=== PATIENT | male | born 1955 | race Caucasian/White ===

== ENCOUNTER 2020-08-10 00:11 | Inpatient (IN) ==
[2020-08-10] MEDS ORDERED: SODIUM CHLORIDE 0.9% 1000ML 1,000 ML IV SCH (00:45)
[2020-08-10 01:03] LABS: Basophils # (auto) 0.04 K/uL (0-0.2); Basophils % (auto) 0.5 %; Eosinophils % (auto) 10.5 %; Hematocrit (blood only) 39.5 % (42-52); Hemoglobin 14.1 g/dL (14.0-18.0); Immature Granulocytes # (auto) 0.02 K/uL (0.00-0.02); Immature Granulocytes % (auto) 0.3 %; Lymphocytes # (auto) 0.74 K/uL (1.2-3.4); Lymphocytes % (auto) 9.7 %; Mean Corpuscular Hemoglobin 30.9 pg (25-34); Mean Corpuscular Hgb Conc 35.7 g/dL (32-36); Mean Corpuscular Volume 86.4 fL (80-100); Monocytes # (auto) 0.42 K/uL (0.11-0.59); Monocytes % (auto) 5.5 %; Neutrophils # (auto) 5.61 K/uL (1.4-6.5); Neutrophils % (auto) 73.5 %; Platelet Count 318 K/uL (130-400); RDW Coefficient of Variation 12.3 % (11.5-14.5); RDW Standard Deviation 39.3 fL (36.4-46.3); Red Blood Count 4.57 M/uL (4.7-6.1); White Blood Count 7.63 K/uL (4.8-10.8)
[2020-08-10 01:12] LABS: iSTAT Creatinine 3.6 mg/dl (0.6-1.3); iSTAT Hemoglobin 13.6 g/dl (14.0-18.0); iSTAT Ionized Calcium 1.32 mmol/l (1.12-1.32); iSTAT Potassium 4.3 mmol/L (3.3-5.0)
[2020-08-10 01:13] LABS: Partial Thromboplastin Ratio 0.9; Partial Thromboplastin Time 26.4 Seconds (21.0-31.0); Prothrombin Time 10.6 Seconds (9.0-12.0)
[2020-08-10 01:21] LABS: Alanine Aminotransferase 19 U/L (12-78); Albumin Level 3.5 gm/dl (3.4-5.0); Aspartate Aminotransferase 16 U/L (15-37); BUN Creatinine Ratio 7.1 (10-20); Blood Urea Nitrogen 26 mg/dl (7-18); Calcium 9.9 mg/dl (8.5-10.1); Carbon Dioxide 23 mmol/L (21-32); Chloride 95 mmol/L (98-107); Creatinine Clr Calc Pharmacy 25.1 ml/min; Est GFR (African American) 19.1; Est GFR (Non-African American) 16.5; Glucose 111 mg/dl (70-99); Potassium 4.2 mmol/L (3.5-5.1); Sodium 128 mmol/L (136-145)
[2020-08-10] MEDS ORDERED: FAMOTIDINE 20MG/5ML IV PUSH IV STA (01:25)
[2020-08-10 01:26] LABS: Alkaline Phosphatase 88 U/L (45-117); Bilirubin,Total 0.9 mg/dl (0.2-1); Globulin 3.4 gm/dl (2.5-4.0); NT Pro B Type Natriuretic Pept 35 pg/ml (0-900); Total Protein 6.9 gm/dl (6.4-8.2); Troponin I < 0.015 ng/ml (0-0.045)
[2020-08-10 02:56] LABS: Appearance Urine Clear (Clear); Bacteria Urine Automated Negative (Negative); Bilirubin Urine Negative (Negative); Blood Urine 2+ (Negative); Cast Urine Automated 0 /lpf (0-5); Color Urine Orange; Epithelial Cell Urine Auto 0-5 /lpf (0-5); Glucose Urine UA Negative (Negative); Ketones Urine Trace (Negative); Leukocyte Esterase Urine Negative (Negative); Nitrite Urine Positive (Negative); Protein Urine 1+ (Negative); RBC Urine Automated 0-4 /hpf (0-4); Specific Gravity Urine 1.013 (1.000-1.030); Urobilinogen Urine Negative (Negative)
--- NOTE | 2020-08-10 03:53 | History & Physical Report ---
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 secondary to lymphatic leakage post radical prostatectomy and lymph nodes sampling Will get diagnostic paracentesis Could be secondary to blood clot, portal thrombosis Will get mesenteric doppler u/s to assess flow through mesenteric and portal veins Possibly secondary to reactivated granulomatous disease, Donald's could explain lung granulomas and impaired renal function, CHurg Sav, tuberculosis Will get acid fast culture of ascitic fluid, will check ESR and CRP for evidence of active vasuclitic disease Other common causes for ascites: Cirrhosis, no evidence of cirrhosis on CT, no evidence of liver dysfunction INR normal, Bili transaminases normal. Cancer, certainly possible though patient reportedly had fairly mild disease with clear margins and all lymph nodes negative PSA <3 at time of diagnosis Heart Failure, negative BNP no evidence of failure on history or physical SHANA Patient admits he has not been eating or drinking much of anything for last week, Creatinine 3.62 BUN of 26 Will rehydrate given 1 L NSS in ED now 125 mls/hour LR and recheck BMP to see if this is pre renal Urine sodium and urine creatinine ordered to check FENA, urinating spontaneously without any difficulty or weakened stream does not appear to be obstructive Hyponatremia 128 unknown chronicity Will rehydrate and recheck in AM UTI Patient with positive nitrites blood and protein, Non septic asymptomatic will give dose of ceftriaxone now DVT PPx: lovenox F/E/N: LR 125 mls/hour NPO for now Dispo: Admit Med/Surg for further investigations as above Full Code (2) Elevated PSA: (3) Ascites: (4) Status post prostatectomy: (5) Hyponatremia: (6) SHANA (acute kidney injury): History of Present Illness Chief Complaint: Abdominal Distension causing shortness of breath Primary Care Provider: Carmelo Alvarez MD Andrew Anguiano is a 65 year old man with a Past medical history significant for recently diagnosed prostate cancer with radical prostatectomy performed at [facility] two weeks ago and hyperlipidemia who presents today with shortness of breath. He has noticed marked abdominal swelling that has been increasing since a few days after his procedure. He feels that it has stopped him being able to take a deep breath which is making him feel short of breath. He has also had some non bloody non melanotic diarrhea over the last three days and has had some incontinence since his miramontes was removed following the procedure about a week ago. Just in the last week he has gained ten pounds despite a markedly decreased appetite and decreased liquid intake. Patient also went to his primary care doctor about a week ago for palpable lump on his neck. U/S was obtained which appeared to be a reactive lymph node rather than suspicious for metastatic prostate cancer. Surgical margins for prostate cancer were clear and they took approximately 20 lymph nodes as well per patient, no records as surgery was done at [place]. Other than that he has been well and has not noticed any other symptoms, denies fever, chills, sweats, chest pain, orthopnea, leg swelling, hand swelling, abdominal pain, nausea vomiting, hematuria, dysuria, skin rashes, weakenss, numbness dizziness or syncope, palpitations or any other concerning symptoms. On presentation to ED patient's vitals are WNL, Labwork significant for hypnatremia at 127 and an SHANA with creatinine of 3.62 with no baseline BUN of 26, urinalysis with 2+blood, 1+ protein, and positive nitrites. CT abdomen Pelvis obtained showing RIght upper and middle lobe calcified granulomas, hepatic granuloma and splenic granulomas as well as a moderate/large amount of ascites. 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 Full Code Allergies Allergy/AdvReac Type Severity Reaction Status Date / Time levofloxacin [From Levaquin] Allergy hives Verified 08/10/20 00:32 oxaprozin [From Daypro] Allergy Hives Verified 08/10/20 00:32 Home Medications Home Medications Medication Instructions Recorded Confirmed Type ipratropium bromide 2 spray INTRANASAL BID 08/10/20 08/10/20 History simvastatin 20 mg PO DAILY 08/10/20 08/10/20 History Past Med/Surg History Surgical History (Updated 08/10/20 @ 04:23 by Sudeep Bourne MD) No history of previous surgery Family History (Updated 05/22/20 @ 09:25 by Nelly Cordoba) Other No pertinent family history Social History Smoking Status: Never smoker Hx Alcohol Use: Yes Alcohol type: wine Alcohol Intake Frequency Comment: socially Hx Substance Use: No Preferred Language: Spanish Communication Ability: Effective 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: No Beliefs That Will Affect Care: None marital status: Current Living Situation: Family Other Information That Helps Us Care for You: No Feels Safe at Home: Yes Safety Concerns: Feels Safe At This Time Assistive Devices: Glasses Review of Systems Review of Systems: All systems reviewed & are unremarkable except as noted in HPI & below Physical Exam Constitutional: well developed and well nourished; no acute distress and not ill appearing Eyes: PERRL, conjunctivae normal, anicteric sclerae ENMT: external ear and nose normal, oropharynx normal Neck: Firm nontender lymph nodes about 1 cm on lower anterior neck Respiratory: normal respiratory effort, lungs clear to auscultation Cardiovascular: Rate/Rhythm: regular rate and regular rhythm Heart Sounds: normal S1 and normal S2 Vessels: normal peripheral pulses and dorsalis pedis pulses present; no JVD Extremities: no calf tenderness, no pedal edema and no edema Gastrointestinal (Abdomen): Inspection/Auscultation: + abdomen distended Percussion/Palpation: + ascites (Shiftin dullness); abdomen nontender, no guarding and no hepatosplenomegaly Skin: no rashes, warm and dry Neurologic: PERRL, EOMI, accommodation nl, no face palsy, no dysarthria Results & Data Results & Data ([facility]) Vital Signs (Past 12 Hours) Vital Signs Temp Pulse Pulse Resp BP BP Pulse Ox 08/10/20 02:25 77 19 139/76 94 08/10/20 01:25 81 18 138/82 97 08/10/20 00:23 36.6 C 96 H 18 146/85 H 97 Code Status & VTE Plan VTE Prophylaxis Plan VTE Prophylaxis will be ordered: Yes Supervising Physician Co-Signing Physician Notes Attending addendum: I have physically seen this patient, have supervised the medical residents activities, and agree with the H&P unless as otherwise noted. Assessment and Plan: Acute renal failure/hyponatremia/presumptive UTI- Creatinine 3.60 upon admission, with most recent around 1. Sodium 128 upon admission. Check serum and urine osmolalities. NSS at 125 mL's per hour. Recheck laboratories in a.m. Ceftriaxone 1 g IV daily Follow urine culture and sensitivities Consult nephrology Prostate cancer status post prostatectomy- Consult urology Ascites/nonspecific- Unclear etiology at this time. Order mesenteric Dopplers and abdominal ultrasound for further investigation. Ultrasound-guided diagnostic paracentesis. Consult gastroenterology Remaining orders and notations as noted Resident Activity Tracking Resident Involvement: Resident Care Provided Care Provided: [facility]
[2020-08-10] MEDS ORDERED: ONDANSETRON INJ 2 MG/ML 2 ML VIAL IV PRN (04:59)
[2020-08-10] MEDS ORDERED: LACTATED RINGER'S 1,000 ML IV SCH (04:59)
[2020-08-10] MEDS ORDERED: POLYETHYLENE (MIRALAX) 17 GM PACK PO PRN (04:59)
[2020-08-10] MEDS: SODIUM CHLORIDE 0.9% 1000ML 1,000 ML IV SCH ×3 (05:27→20:41)
--- NOTE | 2020-08-10 05:31 | Emergency Department Note ---
History of Present Illness General Chief complaint: Respiratory Problems Stated complaint: HARD TO BREATHE Time Seen by Provider: 08/10/20 00:27 Source: patient and RN notes reviewed Mode of arrival: ambulatory Limitations: no limitations History of Present Illness Provider complaint: SOB, 10 lb weight gain, recent prostate surgery at [facility] This pt is a 65 yo male who presents to the ED with c/o increasing SOB, abd distension and pain in the upper abd/lower chest bilaterally making breathing difficult. He states his position of comfort is standing. Pt has h/o prostate CA and recent (~ 2 weeks) radical prostatectomy at [facility]. He has gained 10 lbs since surgery. Pt states he was on ASA for a while after surgery but was advised to watch for DVT/PE. He denies fever, cough and CP. He admits to SOB particularly when lying flat. There has been no v/d. He denies LE swelling. Home Medications Home Medications Medication Instructions Recorded Confirmed Type ipratropium bromide 2 spray INTRANASAL BID 08/10/20 08/10/20 History simvastatin 20 mg PO DAILY 08/10/20 08/10/20 History Allergies Allergy/AdvReac Type Severity Reaction Status Date / Time levofloxacin [From Levaquin] Allergy hives Verified 08/10/20 00:32 oxaprozin [From Daypro] Allergy Hives Verified 08/10/20 00:32 Past Med/Surg History Medical History Hyperlipidemia Nephrolithiasis Prostate cancer Surgical History History of prostatectomy No history of previous surgery Family History Other No pertinent family history Social History Smoking Status: Never smoker Hx Alcohol Use: Yes Alcohol type: wine Alcohol Intake Frequency Comment: socially Hx Substance Use: No Preferred Language: Pashto Communication Ability: Effective Tar And Ammonia Pump Operator Required: No Beliefs That Will Affect Care: None marital status: Current Living Situation: Family Other Information That Helps Us Care for You: No Feels Safe at Home: Yes Safety Concerns: Feels Safe At This Time Assistive Devices: None Review of Systems See HPI for pertinent positives & negatives. and A total of 10 systems reviewed and were otherwise negative Physical Exam Vital Signs Vital Signs - 24 hr 08/10/20 01:25 08/10/20 02:25 Pulse Rate [Right Finger] 81 77 Respiratory Rate 18 19 Blood Pressure [Right Arm] 138/82 139/76 Blood Pressure Mean [Right Arm] 100 97 Pulse Oximetry 97 94 Vital signs reviewed. General: Generally well appearing 65 yo male in some discomfort but no sign ificant distress. Sitting upright in bed. HEENT: No scleral icterus, PERRLA, neck supple. Atraumatic. Cardiovascular: Regular rate and rhythm, no extra sounds. Pulmonary: Clear to auscultation bilaterally, normal work of breathing. Abdomen: Distended, firm but nontender, positive bowel sounds. Musculoskeletal: Atraumatic, no peripheral edema. Neurologic: Patient awake alert and oriented x 3, full strength in all 4 extremities. Cranial nerves 2 through 12 grossly intact. Skin: Warm, dry, abdominal incisions with glue, no signs of infection. no drainage. Course Administered Medications Acetaminophen (Acetaminophen 325 Mg Tab) 650 mg PO Q4H PRN PRN Reason: pain/fever Stop: 09/09/20 04:58 Last Admin: 08/11/20 09:48 Dose: 650 mg Documented by: [id number] Admin: 08/11/20 03:57 Dose: 650 mg Documented by: [id number] Enoxaparin Sodium (Enoxaparin Inj 30 Mg/0.3 Ml Syr) 30 mg SQ Q24H VERONICA Stop: 09/09/20 08:59 Last Admin: 08/11/20 09:49 Dose: 30 mg Documented by: [id number] Admin: 08/10/20 12:15 Dose: 30 mg Documented by: [id number] Ceftriaxone Sodium 2,000 mg/ (Dextrose) 70 mls @ 100 mls/hr IV Q24H VERONICA; Protocol Stop: 08/17/20 05:59 Last Infusion: 08/11/20 08:18 Dose: 0 mls/hr Documented by: [id number] Admin: 08/11/20 06:39 Dose: 100 mls/hr Documented by: [id number] Infusion: 08/10/20 07:00 Dose: 0 mls/hr Documented by: [id number] Admin: 08/10/20 06:03 Dose: 100 mls/hr Documented by: [id number] Sodium Chloride (Nss 1000ml) 1,000 mls @ 125 mls/hr IV .Q8H VERONICA Stop: 09/09/20 05:14 Last Admin: 08/11/20 04:28 Dose: 125 mls/hr Documented by: [id number] Infusion: 08/11/20 04:28 Dose: 125 mls/hr Documented by: [id number] Admin: 08/10/20 20:41 Dose: 125 mls/hr Documented by: [id number] Infusion: 08/10/20 20:41 Dose: 125 mls/hr Documented by: [id number] Infusion: 08/10/20 14:59 Dose: 125 mls/hr Documented by: [id number] Admin: 08/10/20 13:20 Dose: 125 mls/hr Documented by: [id number] Infusion: 08/10/20 13:20 Dose: 125 mls/hr Documented by: [id number] Infusion: 08/10/20 06:59 Dose: 125 mls/hr Documented by: [id number] Infusion: 08/10/20 06:15 Dose: 0 mls/hr Documented by: [id number] Admin: 08/10/20 05:27 Dose: 125 mls/hr Documented by: [id number] Melatonin (Melatonin 3 Mg Tab) 6 mg PO HS VERONICA Stop: 09/09/20 20:59 Last Admin: 08/10/20 20:41 Dose: 6 mg Documented by: [id number] Simvastatin (Simvastatin 20 Mg Tab) 20 mg PO HS VERONICA Stop: 09/09/20 20:59 Last Admin: 08/10/20 19:33 Dose: 20 mg Documented by: [id number] Discontinued Medications Famotidine (Famotidine 20mg/5ml Iv Push) 20 mg IV ONE STA Stop: 08/10/20 01:26 Last Admin: 08/10/20 01:29 Dose: 20 mg Documented by: [id number] Sodium Chloride (Nss 1000ml) 1,000 mls @ 999 mls/hr IV .Q1H1M VERONICA Stop: 08/10/20 01:45 Last Infusion: 08/10/20 01:55 Dose: 0 mls/hr Documented by: [id number] Admin: 08/10/20 00:58 Dose: 999 mls/hr Documented by: [id number] Lactated Ringer's (Lr) 1,000 mls @ 125 mls/hr IV .Q8H VERONICA Stop: 09/09/20 04:58 Last Admin: 08/10/20 05:47 Dose: Not Given Documented by: [id number] Medical Decision Making Differential Diagnosis Differential diagnosis: Etiologies such as infections, reactive airway disease, COPD, pneumonia, pleural effusion, pulmonary edema, ARDS, pneumothorax, CHF, cardiac ischemia, cardiac tamponade, dysrhythmia, anemia, pulmonary embolism, musculoskeletal, gastrointestinal process, as well as others were entertained. Medical Records Attestation: I reviewed the patient's medical records. Home Medications Current Medication List: was personally reviewed by me Laboratory Data Attestation: I reviewed the patient's lab results. Result diagrams: 08/11/20 04:45 08/11/20 04:45 Lab Results 08/10/20 08/10/20 08/10/20 Range/Units 00:03 00:03 00:03 WBC 7.63 (4.8-10.8) K/uL RBC 4.57 L (4.7-6.1) M/uL Hgb 14.1 (14.0-18.0) g/dL POC Hgb (14.0-18.0) g/dl Hct 39.5 L (42-52) % POC Hct (42-52) % MCV 86.4 (80-100) fL MCH 30.9 (25-34) pg MCHC 35.7 (32-36) g/dL RDW Std Deviation 39.3 (36.4-46.3) fL RDW Coeff of Tucker 12.3 (11.5-14.5) % Plt Count 318 (130-400) K/uL MPV 9.0 (7.4-10.4) fL Immature Gran % (Auto) 0.3 % Neut % (Auto) 73.5 % Lymph % (Auto) 9.7 % Stanley % (Auto) 5.5 % Eos % (Auto) 10.5 % Baso % (Auto) 0.5 % Neut # (Auto) 5.61 (1.4-6.5) K/uL Lymph # (Auto) 0.74 L (1.2-3.4) K/uL Stanley # (Auto) 0.42 (0.11-0.59) K/uL Eos # (Auto) 0.80 H (0-0.5) K/uL Baso # (Auto) 0.04 (0-0.2) K/uL Immature Gran # (Auto) 0.02 (0.00-0.02) K/uL PT 10.6 (9.0-12.0) Seconds INR 1.0 (0.9-1.1) APTT 26.4 (21.0-31.0) Seconds PTT Ratio 0.9 POC Sodium (135-144) mmol/L Sodium 128 L (136-145) mmol/L POC Potassium (3.3-5.0) mmol/L Potassium 4.2 (3.5-5.1) mmol/L POC Chloride (101-112) mmol/L Chloride 95 L (98-107) mmol/L Carbon Dioxide 23 (21-32) mmol/L POC Total CO2 (24-31) mmol/L Anion Gap 10.0 (3-11) POC Anion Gap (16-25) mmol/L POC BUN (7-18) mg/dl BUN 26 H (7-18) mg/dl Creatinine 3.62 H (0.6-1.4) mg/dl POC Creatinine (0.6-1.3) mg/dl Est Cr Clr Drug Dosing 25.1 ml/min Est GFR ( Amer) 19.1 Est GFR (Non-Af Amer) 16.5 BUN/Creatinine Ratio 7.1 L (10-20) Glucose 111 H (70-99) mg/dl POC Glucose (other) (70-99) mg/dl Calcium 9.9 (8.5-10.1) mg/dl POC Ioniz Calcium Surya (1.12-1.32) mmol/l Magnesium 2.0 (1.8-2.4) mg/dl Total Bilirubin 0.9 (0.2-1) mg/dl AST 16 (15-37) U/L ALT 19 (12-78) U/L Alkaline Phosphatase 88 (45-117) U/L Troponin I < 0.015 (0-0.045) ng/ml NT-Pro-B Natriuret Pep 35 (0-900) pg/ml Total Protein 6.9 (6.4-8.2) gm/dl Albumin 3.5 (3.4-5.0) gm/dl Globulin 3.4 (2.5-4.0) gm/dl Albumin/Globulin Ratio 1.0 (0.9-2) Urine Color Urine Appearance (Clear) Urine pH (4.5-7.5) Ur Specific Franklin (1.000-1.030) Urine Protein (Negative) Urine Glucose (UA) (Negative) Urine Ketones (Negative) Urine Blood (Negative) Urine Nitrite (Negative) Urine Bilirubin (Negative) Urine Urobilinogen (Negative) Ur Leukocyte Esterase (Negative) Urine WBC (Auto) (0-5) /hpf Urine RBC (Auto) (0-4) /hpf U Hyaline Cast (Auto) (0-5) /lpf U Epithel Cells (Auto) (0-5) /lpf Urine Bacteria (Auto) (Negative) 08/10/20 08/10/20 Range/Units 00:58 02:42 WBC (4.8-10.8) K/uL RBC (4.7-6.1) M/uL Hgb (14.0-18.0) g/dL POC Hgb 13.6 L (14.0-18.0) g/dl Hct (42-52) % POC Hct 40 L (42-52) % MCV (80-100) fL MCH (25-34) pg MCHC (32-36) g/dL RDW Std Deviation (36.4-46.3) fL RDW Coeff of Tucker (11.5-14.5) % Plt Count (130-400) K/uL MPV (7.4-10.4) fL Immature Gran % (Auto) % Neut % (Auto) % Lymph % (Auto) % Stanley % (Auto) % Eos % (Auto) % Baso % (Auto) % Neut # (Auto) (1.4-6.5) K/uL Lymph # (Auto) (1.2-3.4) K/uL Stanley # (Auto) (0.11-0.59) K/uL Eos # (Auto) (0-0.5) K/uL Baso # (Auto) (0-0.2) K/uL Immature Gran # (Auto) (0.00-0.02) K/uL PT (9.0-12.0) Seconds INR (0.9-1.1) APTT (21.0-31.0) Seconds PTT Ratio POC Sodium 127 L (135-144) mmol/L Sodium (136-145) mmol/L POC Potassium 4.3 (3.3-5.0) mmol/L Potassium (3.5-5.1) mmol/L POC Chloride 93 L (101-112) mmol/L Chloride (98-107) mmol/L Carbon Dioxide (21-32) mmol/L POC Total CO2 20 L (24-31) mmol/L Anion Gap (3-11) POC Anion Gap 19.0 (16-25) mmol/L POC BUN 27 H (7-18) mg/dl BUN (7-18) mg/dl Creatinine (0.6-1.4) mg/dl POC Creatinine 3.6 H (0.6-1.3) mg/dl Est Cr Clr Drug Dosing ml/min Est GFR ( Amer) Est GFR (Non-Af Amer) BUN/Creatinine Ratio (10-20) Glucose (70-99) mg/dl POC Glucose (other) 113 H (70-99) mg/dl Calcium (8.5-10.1) mg/dl POC Ioniz Calcium Surya 1.32 (1.12-1.32) mmol/l Magnesium (1.8-2.4) mg/dl Total Bilirubin (0.2-1) mg/dl AST (15-37) U/L ALT (12-78) U/L Alkaline Phosphatase (45-117) U/L Troponin I (0-0.045) ng/ml NT-Pro-B Natriuret Pep (0-900) pg/ml Total Protein (6.4-8.2) gm/dl Albumin (3.4-5.0) gm/dl Globulin (2.5-4.0) gm/dl Albumin/Globulin Ratio (0.9-2) Urine Color [place] Urine Appearance Clear (Clear) Urine pH 5.0 (4.5-7.5) Ur Specific Franklin 1.013 (1.000-1.030) Urine Protein 1+ H (Negative) Urine Glucose (UA) Negative (Negative) Urine Ketones Trace H (Negative) Urine Blood 2+ H (Negative) Urine Nitrite Positive A (Negative) Urine Bilirubin Negative (Negative) Urine Urobilinogen Negative (Negative) Ur Leukocyte Esterase Negative (Negative) Urine WBC (Auto) 1-5 (0-5) /hpf Urine RBC (Auto) 0-4 (0-4) /hpf U Hyaline Cast (Auto) 0 (0-5) /lpf U Epithel Cells (Auto) 0-5 (0-5) /lpf Urine Bacteria (Auto) Negative (Negative) Imaging Data Attestation: I personally reviewed and interpreted this imaging study as follows: My Impression: CXR to my interpretation reveals atelectasis and pulm congestion, no evidence of gurpreet failure or focal lung consolidation. Radiologist's Impression: CT CHEST Without Contrast: Heart is normal in size. There is moderate coronaryarterycalcification. Thoracic aorta appears normal. There are calcified lymph nodes in the right paratracheal space and right hilum. Lungs are clear. There are calcified granulomas in the right upper lobe and right middle lobe. There is subsegmental atelectasis in the right lung base. There is no pneumothorax or pleural effusion. Impression:Old granulomatous disease. CT ABDOMEN & PELVIS Without Contrast: There is a hepatic granuloma. There are splenic granulomas. Pancreas appears normal. Gallbladder appears normal. There is a small gastric sliding hiatal hernia. Small bowel and colon appear normal the appendix is not specificallyvisualized. Adrenals kidneys ureters and bladder appear normal. Prostate is not visualized consistent with provided history. There is a moderate-large amount of peritoneal fluid. There is no free peritoneal air. Impression:Nonspecific ascites Radiologist: Minh Holland MD Study ready at 01:57 and initial results transmitted at 02:14 ECG Data Attestation: I personally reviewed and interpreted this ECG as follows: Indication: + SOB/dyspnea Rate (beats per minute): 80 Rhythm: + normal sinus ECG Intervals/blocks: + Normal QT-c (433) ECG [place]: + Normal ECG ST segments: + Normal ST segments ECG Findings: + Q waves (Anterior) Blood Pressure Blood Pressure Findings: Normal blood pressure Blood Pressure Disposition: did not require urgent referral MDM Narrative This pt was evaluated and appeared to be in no distress. IV access was obtained and lab work was drawn. An order for cardiac monitoring was placed and pt was noted to be in a NSR at 80 bpm. CXR to my interpretation reveals minimal congestion, no failure or evidence of PNA. Lab work is concerning for ARF, creat of 3.62 with baseline in May of 1.1. K+ is WNL at 4.4. Pt was hydrated with NSS hoping there is a prerenal component. CT imaging of chest and abd/pelvis was performed without contrast d/t ARF. This is significant for nonspecific ascites of uncertain etiology. No obstructive uropathy noted. UA reveals + nitrates but no WBC, LE or bacteria. Pt was informed of the findings. He will require much more significant w/u. Pt was d/w hospitalist service who will evaluate for further management. Impression & Plan SHANA (acute kidney injury), Ascites, Status post prostatectomy Discharge Plan Visit Data Chief Complaint: Respiratory Problems Stated Complaint: HARD TO BREATHE ED Provider: Kelin Belcher Discharge Problem: SHANA (acute kidney injury), Ascites, Status post prostatectomy Patient Disposition: Admitted As Inpatient Discharge Instructions Interventions: ED Discharge Assessment Last Done: 08/10/20 04:39 Discharge Problem: Ascites Qualifiers: Ascites type: other type Qualified Code(s): R18.8 - Other ascites
[2020-08-10] MEDS: cefTRIAXone SODIUM 2,000 MG in DEXTROSE 5% 50 ML IV SCH (06:03)
[2020-08-10 07:27] LABS: Creatinine Urine Random 87.4 mg/dl
--- NOTE | 2020-08-10 08:18 | CT Scan Report ---
CT SCAN OF THE ABDOMEN AND PELVIS WITHOUT CONTRAST CLINICAL HISTORY: Abdominal pain and swelling status post radical prostatectomy. Shortness of breath. COMPARISON STUDY: No previous studies for comparison. TECHNIQUE: CT scan of the abdomen and pelvis was performed from the lung bases to the proximal femurs . Images are reviewed in the axial, sagittal, and coronal planes. IV contrast was not administered fo r this examination. A dose lowering technique was utilized adhering to the principles of ALARA. CT DOSE: FINDINGS: Lower chest: There are calcified hilar lymph nodes. There are right middle lobe and basilar atelectat ic changes. Liver: The unenhanced liver is normal in size, contour, and attenuation. There is no intrahepatic ricardo iary ductal dilatation. Gallbladder: Unremarkable. Spleen: There are multiple splenic granulomas. The spleen is mildly enlarged measuring 13.1 cm Pancreas: Unremarkable. Adrenal glands: Unremarkable. Kidneys: No renal, ureteral, or bladder calculi are visualized. Bowel: There are no transition zones to indicate bowel obstruction. By history the appendix is absent . There is colonic diverticulosis. Peritoneum: There is no free intraperitoneal air. There is moderate ascites. Vasculature: The abdominal aorta is normal in course and caliber. Adenopathy: None. Pelvic viscera: Post prostatectomy changes are visualized. Skeletal structures: No destructive osseous lesions are seen. IMPRESSION: 1. No evidence of bowel obstruction. No evidence of free air 2. Diverticulosis 3. Mild splenomegaly 4. Postsurgical changes of a prior prostatectomy 5. Moderate ascites ACT 112: Negative or not required by law. Electronically signed by: Mello Renner M.D. 08/10/2020 8:17 AM
--- NOTE | 2020-08-10 08:42 | XRay Report ---
XR chest 1V portable HISTORY: Dyspnea COMPARISON: None. FINDINGS: Bibasilar linear densities consistent with subsegmental atelectasis. The heart is top lino l in size. No pleural effusions. No pneumothorax. No evidence for pulmonary edema. Calcified mediasti nal and right hilar lymph nodes. IMPRESSION: Bibasilar linear densities consistent with subsegmental atelectasis. ACT 112: Negative or not required by law. Electronically signed by: Bryan Farmer M.D. 08/10/2020 8:41 AM
--- NOTE | 2020-08-10 08:43 | CT Scan Report ---
CT chest wo con CLINICAL HISTORY: SOB, weight gain COMPARISON STUDY: Chest x-ray dated 08/10/2020 CT DOSE: 1462.24 mGy.cm TECHNIQUE: CT of the thorax was performed from the thoracic inlet to the lung bases. Images are revi ewed in the axial, sagittal, and coronal planes. IV contrast was not administered for this examinatio n. A dose lowering technique was utilized adhering to the principles of ALARA. FINDINGS: Thyroid: Imaged portions of the thyroid gland are normal in appearance. Thoracic aorta: The thoracic aorta is normal in course and caliber, noting standard 3 vessel arch jake luis. Heart: The heart is normal in size. There are coronary artery calcifications. Lungs and pleural spaces: There are no pleural effusions. There are subsegmental atelectatic changes at both lung bases. There are no areas of parenchymal consolidation to indicate a pneumonia. There is a right upper lobe calcified granuloma. There is a 7 mm irregularly marginated left upper lobe pulmo nary nodule as visualized image #[id number]. There is a 7 mm irregularly marginated right middle lobe pu lmonary nodule as visualized image [id number]. Mediastinum: There are calcified mediastinal lymph nodes, likely postinflammatory Tatiana: There are hilar calcifications, likely postinflammatory. Axilla: There is no evidence of pathologic axillary lymphadenopathy Upper abdomen: There is moderate ascites Skeletal structures: There are no lytic or blastic osseous lesions. IMPRESSION: 1. Bilateral atelectatic changes 2. Bilateral solid 7 mm irregularly marginated pulmonary nodules 3. Bilateral atelectatic changes. No evidence of focal pneumonia 4. A 3-6 months follow-up CT scan is recommended per Fleischner criteria. 5. Ascites Please refer to below summary of Fleischner criteria recommendations for follow-up of incidental CT n odules (Jamie Pelaez, Guidelines for management of small pulmonary nodules detected on CT scans: A sta tement from the Fleischner Society, Radiology 237: [phone].) SOLID NODULES Solitary nodule size: <6 mm * low risk patients: no follow-up needed * high risk patients: optional CT at 12 months Solitary nodule size: 6-8 mm * low risk patients: follow-up at 6-12 months, then consider further follow-up at 18-24 months * high risk patients: initial follow-up CT at 6-12 months and then at 18-24 months if no change Solitary nodule size: >8 mm * either low or high risk patients - consider follow-up CT at 3 months, and/or CT-PET, and/or biopsy Multiple nodules size: <6 mm * low risk patients: no routine follow-up * high risk patients: optional CT at 12 months Multiple nodules size: 6-8 mm * low risk patients: follow-up at 3-6 months, then consider further follow-up at 18-24 months * high risk patients: follow-up at 3-6 months, then at 18-24 months if no change Multiple nodules size: >8 mm * low risk patients: follow-up at 3-6 months, then consider further follow-up at 18-24 months * high risk patients: follow-up at 3-6 months, then at 18-24 months if no change Note: newly detected indeterminate nodule in persons 35 years of age or older. * low risk patients: minimal or absent history of smoking and/or other known risk factors * high risk patients: history of smoking or of other known risk factors (e.g. first degree relative with lung cancer, or exposure to asbestos, radon, uranium) * if a nodule up to 8 mm is partly solid or is ground glass further follow-up is required after 24 m onths to exclude possible slow growing adenocarcinoma (PATY) SUBSOLID NODULES Solitary pure ground-glass nodule * nodule size <6 mm - no CT follow-up required * nodule size >=6 mm - follow-up CT at 6-12 months, then every 2 years until 5 years Solitary part-solid nodule * nodule size <6 mm - no CT follow-up required * nodule size >=6 mm - follow-up CT at 3-6 months. If unchanged, and solid component remains <6 mm, then annual follow-up for 5 years Multiple subsolid nodules * nodule size <6 mm - follow-up CT at 3-6 months, consider further follow-up at 2 and 4 years if sta ble * nodule size >=6 mm - follow-up CT at 3-6 months, subsequent management based on the most suspiciou s nodule(s) ACT 112: Positive. There are findings on this exam that require communication between the performing entity and the patient following Patient Test Result Information Act ([place] Act 112) guidelines. Electronically signed by: Mello Renner M.D. 08/10/2020 8:41 AM
[2020-08-10] MEDS ORDERED: SIMVASTATIN 20 MG TAB PO SCH (09:00)
--- NOTE | 2020-08-10 10:47 | Electrocardiogram Report ---
Test Reason : Blood Pressure : / mmHG Vent. Rate : 080 BPM Atrial Rate : 080 BPM P-R Int : 200 ms QRS Dur : 100 ms QT Int : 376 ms P-R-T Axes : 026 027 046 degrees QTc Int : 433 ms Normal sinus rhythm Low voltage QRS Borderline ECG No previous ECGs available Confirmed by Chapin Aiken ([id number]) on 08/10/2020 10:47:30 AM Referred By: REFERRED SELF Confirmed By:Rome Aiken
--- NOTE | 2020-08-10 10:56 | Hospitalist Progress Note ---
Date of Service August 10, 2020 Assessment & Plan (1) Ascites: 65 y/o M with recently diagnosed prostate cancer s/p prostatectomy who presents with ascites, hyponatremia, and SHANA. Ascites, trausudative vs chylous vs malignant - H/H ok. hb 14.1. hct39.5L. coags wnl. crp 0.98H. cdiff tox gene neg. 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 CT abd and CT chest showed splenic granulomas and pulmonary granuloma. Consider TB vs MAC. - consider disseminated histoplasmosis. past hx granulomas on imaging and histoplasmosis per patient reported hx. consider histoplasmosis serology testing, blood cultures, peritoneal fluid testing - switched order from diagnostic to diagnostic+therapeutic paracentesis. will include AFB test. - canceled order for mesenteric US because lower suspicion for arterial pathology - portal vein US: patent portal veins - ordered noon BMP recheck. update: hypoNa unchanged prostate cancer s/p prostatectomy 2 wks ago - can consider rechecking PSA, but given how recent the prostatectomy was, will defer pulmonary nodules on CT chest chest ct: bilat solid 7 mm irreg margin pulm nodules. granuloma noted - can consider nearer future outpatient f/u on CT such as 1-3 months vs EBUS - deferring biopsy today while awaiting paracentesis workup for ascites hypoNa 128, asymptomatic - most likely from poor PO intake prior to admission and hemodilution from IV fluids. - will trend, no specific repletion at this time. on NSS. SHANA, most likely ATN - bun/cr 26H/3.62H - likely ATN given recent prostate cancer dx and surgery. lack of casts on UA but sometimes does not show. - FeNa 1.2%, most suggestive of intrinsic renal disease, ATN. less likely glomeurlonephritis given unimpressive amount of urine blood on UA and no hematuria. less likely obstructive because of CT findings. palpitations - ecg nsr low voltage at midnight. - will not order another ecg at this time insomnia - added scheduled melatonin 6 qhs UA suggestive of bacteruria, asymptomatic - urine nitrite pos - could order culture to have sensitivities on hand (but would not treat) in case patient develop urinary sxs especially in the context of his prostate issues and complex presentation - culture deferred at this time fengi: 1.1 in. 150 out. nss 125. ceftriaxone iv 100/hr. NPO->DM2 diet starting at dinner time. full code. med/surg Present on Admission?: Yes Admission and Anticipated Discharge Date Admission Date: August 10, 2020 Supervising Physician Co-Signing Physician Notes I personally examined the patient and verified all amato points of history and exam, discussed case, and agree with decision making with Dr Cameron. feeling about the same. did have some diarrhea - but also was constipated earlier in the week. wonders about lymphatic fluid. urinating reasonably - although notes less since he had miramontes out vitals noted nad heent nc at mmm breathing unlabored no accessory muscles good effort abd soft mod distention w fluid wave surgical scars from multiple incisions healing well, c/d/i new onset ascites -portal HTN/liver mechanism appears ruled out -?oncotic/osmotic pressure increase pulling fluid possible -?chylous ascites seems less likely but still possible -does not appearing SBP/active infection -consider further ddx, diagnostic para will be quite helpful ARF -FeNa suggests intrinsic renal. CT rules out obstructive -?prerenal insult between surgery, poor intake, third spacing from ascites, and fluid loss from diarrhea leading to ATN -follow - improving -continue IV fluids otherwise as above Subjective + some SOB worse when sitting or any position that compresses his abdomen. Least SOB in standing position. + occasional palpitations since last night, described as heart pounding. + 3 days of looser stools / diarrhea, mild amounts, 4-5 episodes/day. + abd bloating, + flatus and burping. Denie hx of liver problems. Review of Systems Review of Systems: Constitutional: Denies fever, chills Cardiovascular: Denies Chest pain, chest pressure, extremity swelling Respiratory: As per HPI Gastrointestinal: Denies abdominal pain, nausea, vomiting, constipation Genitourinary: Denies urinary symptoms including dysuria Musculoskeletal: Denies muscle aches/pain, joint aches/pain Neurological: Denies headache, numbness, tingling, focal weakness Physical Exam Physical Exam: General: Grossly A&O. NAD. Cooperative. HEENT: Atraumatic, normocephalic. Pulm: CTAB. -wheezes, -rales, -rhonchi. Cardiac: RRR, -mrg. No LE edema. Negative for JVD, ~8cm at 30 degrees. Abdominal: Nontender, soft. Moderate ascites. Results & Data Results & Data ([facility]) Vital Signs (Past 12 Hours) Vital Signs Temp Pulse Pulse Resp BP BP Pulse Ox 08/10/20 08:21 36.5 C 71 18 131/70 98 08/10/20 05:00 36.6 C 83 20 131/83 98 08/10/20 04:39 78 17 129/75 95 08/10/20 04:26 84 18 95 08/10/20 02:25 77 19 139/76 94 08/10/20 01:25 81 18 138/82 97 08/10/20 00:23 36.6 C 96 H 18 146/85 H 97
--- NOTE | 2020-08-10 11:35 | Ultrasound Report ---
US duplex portal hepatic veins CLINICAL HISTORY: CONCERN FOR PORTAL VEIN THROMBOSIS. Ascites. COMPARISON STUDY: Abdomen and pelvis CT 08/10/2020. FINDINGS: The portal and hepatic veins are patent and demonstrate normal direction of flow. There is a small to moderate amount of ascites. IMPRESSION: 1. Patent portal veins. 2. Small to moderate amount of ascites. ACT 112: Negative or not required by law. Electronically signed by: Bryan Farmer M.D. 08/10/2020 11:34 AM
[2020-08-10] MEDS: ENOXAPARIN INJ 30 MG/0.3 ML SYR SQ SCH (12:15)
[2020-08-10] MEDS ORDERED: Nursing to Pharmacy Communication SCH (12:30)
[2020-08-10 13:10] LABS: BUN Creatinine Ratio 7.3 (10-20); Calcium 9.3 mg/dl (8.5-10.1); Creatinine Clr Calc Pharmacy 27.1 ml/min; Est GFR (African American) 20.9; Potassium 4.4 mmol/L (3.5-5.1)
[2020-08-10] MEDS: SIMVASTATIN 20 MG TAB PO SCH (19:33)
[2020-08-10] MEDS: MELATONIN 3 MG TAB PO SCH (20:41)
--- NOTE | 2020-08-11 02:58 | Billing Data ---
Date of Service August 11, 2020 Coding Level of Care Code 59880 Initial Inpt Care Lvl 3
[2020-08-11] MEDS: ACETAMINOPHEN 325 MG TAB PO PRN ×3 (03:57→21:22)
[2020-08-11] MEDS: SODIUM CHLORIDE 0.9% 1000ML 1,000 ML IV SCH ×3 (04:28→19:54)
[2020-08-11 05:01] LABS: Basophils # (auto) 0.08 K/uL (0-0.2); Basophils % (auto) 1.3 %; Eosinophils # (auto) 1.08 K/uL (0-0.5); Eosinophils % (auto) 18.1 %; Hematocrit (blood only) 38.2 % (42-52); Hemoglobin 13.7 g/dL (14.0-18.0); Immature Granulocytes # (auto) 0.01 K/uL (0.00-0.02); Immature Granulocytes % (auto) 0.2 %; Lymphocytes # (auto) 1.07 K/uL (1.2-3.4); Mean Corpuscular Hemoglobin 31.5 pg (25-34); Mean Corpuscular Hgb Conc 35.9 g/dL (32-36); Mean Corpuscular Volume 87.8 fL (80-100); Mean Platelet Volume 9.2 fL (7.4-10.4); Monocytes # (auto) 0.34 K/uL (0.11-0.59); Monocytes % (auto) 5.7 %; Neutrophils # (auto) 3.38 K/uL (1.4-6.5); Neutrophils % (auto) 56.7 %; Platelet Count 321 K/uL (130-400); RDW Coefficient of Variation 12.5 % (11.5-14.5); RDW Standard Deviation 40.3 fL (36.4-46.3); Red Blood Count 4.35 M/uL (4.7-6.1); White Blood Count 5.96 K/uL (4.8-10.8)
[2020-08-11 05:20] LABS: Albumin Level 3.6 gm/dl (3.4-5.0); Calcium 9.5 mg/dl (8.5-10.1); Creatinine Clr Calc Pharmacy 24.6 ml/min; Est GFR (African American) 18.6; Est GFR (Non-African American) 16.1; Potassium 4.5 mmol/L (3.5-5.1)
[2020-08-11 05:23] LABS: Albumin Globulin Ratio 1.1 (0.9-2); Bilirubin,Total 0.7 mg/dl (0.2-1); Globulin 3.4 gm/dl (2.5-4.0)
[2020-08-11] MEDS: cefTRIAXone SODIUM 2,000 MG in DEXTROSE 5% 50 ML IV SCH (06:39)
--- NOTE | 2020-08-11 08:29 | Hospitalist Progress Note ---
Date of Service August 11, 2020 Assessment & Plan (1) Ascites: 65 y/o M with recently diagnosed prostate cancer s/p prostatectomy who presents with ascites, hyponatremia, and SHANA. Ascites, trausudative vs chylous vs malignant H/H 13.7/38.2. slightly low. na 129L. bun/cr 29/3.7 up from 26H/3.62H. previous days: coags wnl. crp 0.98H. cdiff tox gene neg. pos hemoccult this AM - unknown cause, dose not appear to have a cirrhotic liver, LFT's normal, - could be chylous ascites secondary to lymphatic leakage post radical prostatectomy and lymph nodes sampling, lower suspicion because of extensive disruption required to cause severity of findings - could be secondary to blood clot, portal thrombosis or reactivated granulomatous dz. CT abd and CT chest showed splenic granulomas and pulmonary granuloma. Consider TB vs MAC. - consider disseminated histoplasmosis. past hx granulomas on imaging and histoplasmosis per patient reported hx. consider histoplasmosis serology testing, blood cultures, peritoneal fluid testing - switched order from diagnostic to diagnostic+therapeutic paracentesis. will include AFB test. - canceled order for mesenteric US because lower suspicion for arterial pathology - portal vein US: patent portal veins - paracentesis Sunday 08/12. peritoneal fluid studies. AFB culture. histoplasmosis serology and urine Ab prostate cancer s/p prostatectomy 2 wks ago - can consider rechecking PSA, but given how recent the prostatectomy was, will defer - urology placed miramontes today after pt complaining of worsening of abd distention and R flank pain. plan is for cystogram tomorrow to determine size of leak and duration of miramontes (1wk vs more) heartburn - 11:13 pm complained of heartburn. tums 500 chewable - 14:11 pm still complaining of heartburn. Pepcid 10 mg PO. Patient had received 20 mg Pepcid IV 08/10. Aware of renal dosing for gfr <30. - ordered ecg at 9pm because patient's heartburn earlier in the day was not sufficiently relieved by pepcid and tums. pulmonary nodules on CT chest chest ct: bilat solid 7 mm irreg margin pulm nodules. granuloma noted - can consider nearer future outpatient f/u on CT such as 1-3 months vs EBUS - deferring biopsy today while awaiting paracentesis workup for ascites hypoNa 128, asymptomatic - most likely from poor PO intake prior to admission and hemodilution from IV fluids. - will trend, no specific repletion at this time. on NSS. SHANA, most likely ATN - bun/cr 26H/3.62H - likely ATN given recent prostate cancer dx and surgery. lack of casts on UA but sometimes does not show. - FeNa 1.2%, most suggestive of intrinsic renal disease, ATN. less likely glomeurlonephritis given unimpressive amount of urine blood on UA and no hematuria. less likely obstructive because of CT findings. - good UOP after miramontes placement. 3L out in 8 hours. will increase NSS 125 to 150/hr insomnia - added scheduled melatonin 6 qhs UA suggestive of bacteruria, asymptomatic - urine nitrite pos - could order culture to have sensitivities on hand (but would not treat) in case patient develop urinary sxs especially in the context of his prostate issues and complex presentation - culture deferred at this time fen/gi: past 36 hrs ~5L in 4.2L out. output increased after miramontes placement. nss 125. ceftriaxone iv 100/hr. DM2 diet. full code. med/surg (2) Prostate cancer: (3) Status post prostatectomy: (4) Pulmonary nodules: (5) Heartburn symptom: (6) Insomnia: Admission and Anticipated Discharge Date Admission Date: August 10, 2020 Supervising Physician Co-Signing Physician Notes I personally examined the patient and verified all amato points of history and exam, discussed case, and agree with decision making with Dr Cameron. feeling ok. discussed progress on ddx and plan. he expressed good understanding vitals noted nad heent nc at mmm breathing unlabored no accessory muscles good effort normal gait. new onset ascites -portal HTN/liver mechanism appears ruled out -seems most likely urine leak -oncotic pressure / chylous seems less likely -paracentesis tomorrow hopefully will be quite helpful diagnostic and therapeutic ARF -FeNa suggests intrinsic renal. CT rules out obstructive -?prerenal insult between surgery, poor intake, third spacing from ascites, and fluid loss from diarrhea leading to ATN -appreciate nephro input - ?falsely elevated creatinine from absorption from urine ascites? -continue to follow otherwise as above Subjective R flank pain, started last night. Hx kidney stone 2015 that was symptomatic and tx'd w/ lithotripsy. No stones visualized on current admission's CT. Slight sob, improved from yesterday. Urinating less than normal in the past few days. Stools a little less loose today. Had BM this AM, less liquidy. Appetite good. 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 Patient used to live in [place], but never had symptoms. Review of Systems Review of Systems: Constitutional: Denies fever, chills, weight change Cardiovascular: Denies Chest pain Respiratory: As per HPI Gastrointestinal: Denies, nausea, vomiting, constipation, see HPI Genitourinary: Denies urinary symptoms including dysuria or hematuria Musculoskeletal: Denies weakness, muscle aches/pain, joint aches/pain Neurological: Denies headache, numbness, tingling, focal weakness Physical Exam Physical Exam: General: Grossly A&O. NAD. Cooperative. HEENT: Atraumatic, normocephalic. EOMI. MMM. R lateral neck LN, marble sized, posterior chain Pulm: CTAB. -wheezes, -rales, -rhonchi. Cardiac: RRR, -mrg. Radial pulses intact and symmetrical. Abdominal: moderate ascites. soft, nontender. normal BS. no flank ttp Back: no midline/paraspinal ttp. no cva ttp Results & Data Results & Data ([facility]) Vital Signs (Past 12 Hours) Vital Signs Temp Pulse Resp BP Pulse Ox 08/10/20 23:23 36.5 C 94 H 16 127/77 95 Resident Activity Tracking Resident Involvement: Resident Care Provided Care Provided: Adult Hospital Medicine
[2020-08-11] MEDS: ENOXAPARIN INJ 30 MG/0.3 ML SYR SQ SCH (09:49)
--- NOTE | 2020-08-11 10:39 | Urology Consultation ---
Date of Consultation August 11, 2020 Assessment & Plan (1) Prostate cancer: Status post recent robotic prostatectomy His catheter was removed last week and he began to develop abdominal distention with diminished urinary output CT shows a substantial amount of ascites/fluid within the abdomen I strongly suspect that he has an anastomotic leak A new Ray catheter was inserted to try to maximally divert urine away from this leak site Creatinine is elevatedthis is most likely resorptive and not true renal failure I am uncertain that a diagnostic or therapeutic paracentesis is necessary, however it may relieve the symptoms somewhat If paracentesis is completed I would highly recommend checking the fluid for fluid creatinine level and anything substantially elevated above serum creatinine levels would confirm the diagnosis Regardless of the paracentesis, he will need a cystogram tomorrow to evaluate the leak and determine the size of the leak which will then guide length of catheterization Discussed my suspicion with the patient who expressed good understanding Discussed this with the r d intern satellite communications engineer 16 [place]uv[place] coud tip catheter inserted with aseptic technique in standard fashion without difficultygood return of urine History of Present Illness Attending Physician: Nader Posada DO History of Present Illness 65-year-old gentleman 2 weeks status post robotic prostatectomy at [facility] He presented back to the emergency room yesterday secondary to significant abdominal distention and discomfort He was found to have an acutely elevated creatinine to 3.5 He has significant ascites on CT He has had diminishing urine output He is quite uncomfortable but afebrile and aside from mild tachycardia hemodynamically stable Pathology showed organ confined Tamera 3+4 disease per patient Preoperative imaging included an MRIno evidence of metastatic disease on preoperative imaging nor on CT Allergies Allergy/AdvReac Type Severity Reaction Status Date / Time levofloxacin [From Levaquin] Allergy hives Verified 08/10/20 00:32 oxaprozin [From Daypro] Allergy Hives Verified 08/10/20 00:32 Home Medications Home Medications Medication Instructions Recorded Confirmed Type ipratropium bromide 2 spray INTRANASAL BID 08/10/20 08/10/20 History simvastatin 20 mg PO DAILY 08/10/20 08/10/20 History Patient History Medical History (Updated 08/11/20 @ 10:36 by Carmelo Moreno MD) Prostate cancer Surgical History (Updated 08/11/20 @ 10:36 by Carmelo Moreno MD) History of prostatectomy No history of previous surgery Family History (Updated 05/22/20 @ 09:25 by Nelly Cordoba) Other No pertinent family history Social History Smoking Status: Never smoker Hx Alcohol Use: Yes Alcohol type: wine Alcohol Intake Frequency Comment: socially Hx Substance Use: No Preferred Language: Swedish Communication Ability: Effective Furniture Repairer Required: No Beliefs That Will Affect Care: None marital status: Current Living Situation: Family Other Information That Helps Us Care for You: No Feels Safe at Home: Yes Safety Concerns: Feels Safe At This Time Assistive Devices: None Review of Systems Constitutional: no fever, no chills and no fatigue Eyes: no worsening vision Ear, Nose, Mouth, Throat: no facial pain and no pain with swallowing Respiratory: no cough and no dyspnea Cardiovascular: no chest pain and no palpitations Gastrointestinal: + abdominal pain, + bloating and + nausea; no vomiting Musculoskeletal: no back pain Integumentary: no rash and no urticaria Neurologic: no gait abnormality and no unsteadiness Psychiatric: no behavioral changes and no depression Endocrine: no fatigue Physical Exam Physical Exam: Incisions appropriate Distended abdomen with fluid wave No leakage through the ports Constitutional: well developed and well nourished Neck: neck nontender Respiratory: normal respiratory effort; no respiratory distress and does not use accessory muscles Cardiovascular: Rate/Rhythm: regular rate Vessels: radial pulses present Extremities: no edema Gastrointestinal (Abdomen): Inspection/Auscultation: abdomen normal to inspection Percussion/Palpation: abdomen soft; abdomen nontender and no guarding Musculoskeletal: Head/Neck/Chest: normocephalic and head atraumatic Extremities: extremities normal to inspection Skin: no rashes and no lesions Trauma: no evidence of skin trauma Neurologic: awake; not obtunded Speech / Cognition: normal speech Motor/Sensory: no tremor Psychiatric: Orientation: alert and oriented x 3 Genitourinary: no CVA tenderness Lymphatic: no lymphadenopathy Results & Data ([facility]) Vital Signs (Past 12 Hours) Vital Signs Temp Pulse Resp BP Pulse Ox 08/11/20 08:30 36.5 C 100 H 18 121/75 97 08/10/20 23:23 36.5 C 94 H 16 127/77 95 PG Care Time/CCT Total # of Minutes Spent Total Time Spent with Patient: Total time spent is greater than 50% in coordination of care (as documented) at patient's floor/unit and/or counseling patient: Coding Level of Care Code 98918 Inpt Consult Level 4 Diagnoses Prostate cancer C61
[2020-08-11] MEDS ORDERED: CALCIUM CARBONATE 500 MG CHEWABLE TAB PO STA (11:59)
[2020-08-11] MEDS: TOLTERODINE TARTRATE LA 2 MG CAPCR PO SCH (12:05)
--- NOTE | 2020-08-11 12:27 | Nephrology Consultation ---
Date of Consultation August 11, 2020 Assessment & Plan (1) SHANA (acute kidney injury): Acute kidney injury in the setting hospital admission for abdominal ascites, progressive respiratory distress and recent prostatectomy. No known history of chronic kidney disease. Urinalysis with low grade proteinuria and hematuria. No postrenal obstruction on CT scan but has significant ascites. Elevated creatinine with abdominal ascites after recent prostatectomy and removal of Ray catheter could be associated with increased creatinine absorption from urinary leak if the ascites is truly from urinary Leak. ATN, AIN after recent surgery is a possibility as well, although no clear sign of volume depletion at this point. Blood pressure has been well controlled. Na stable at 129 -- continue to monitor renal function with daily renal panel and electrolyte, if it is urinary leak from the anastomotic site, renal function slowly start improve after Ray catheter was placed. -- if paracentesis is done, will need to check fluid for creatinine. -- maintain adequate hydration, avoid any nephrotoxic medications including NSAID. -- No other workup in dictated at this time, expect renal function to slowly start improved. -- Will check urine osmolality with a.m. labs Will follow Thank you for allowing me to participate in your patient's care. It was a pleasure to see Mr. Anguiano (2) Ascites: (3) Hyponatremia: (4) Status post prostatectomy: History of Present Illness Reason for Consultation: Acute kidney injury Attending Physician: Nader Posada DO History of Present Illness Mr. Andrew Anguiano is a 65-year-old gentlemen with past medical history significant for history of prostate cancer status post prostatectomy recently, dyslipidemia and nephrolithiasis admitted to the hospital with AK I, shortness of breath and abdominal distension. Nephrology consult was requested to manage acute kidney injury. Electronic medical records including labs and imaging reviewed in detail during patient's visit. Mr. Anguiano Was recently diagnosed with prostate cancer after he was found have elevated PSA, had robotic prostatectomy 2 weeks ago at [facility]. He was discharged with Ray catheter. Catheter was removed several days ago and since the catheter was removed he started noticing weight gain and abdominal distention associated with shortness of breath. Admitted to the hospital on 08/09/2020 with progressive shortness of breath. On admission he was found to have AK with creatinine of 3.6. Although he does have history of nephrolithiasis before, no known history of chronic kidney disease, baseline creatinine is not available in our system. CT abdomen pelvis without contrast was negative for postrenal obstruction however he found to have significant abdominal ascites. Urinalysis with Low grade proteinuria and microscopic hematuria but no pyuria Or bacteriuria. FeNa Was 1.2. No lower extremity edema. Although p.o. intake has not been that great over last few days no sign of significant volume depletion on exam.No known history of coronary artery disease, CHF or liver disease. He denies heavy NSAID use recently. He had Ray catheter placed this morning with decent urine output. Creatinine staying relatively stable around 3.6-3.7, serum sodium stable at 128. Blood pressure well controlled. Allergies Allergy/AdvReac Type Severity Reaction Status Date / Time levofloxacin [From Levaquin] Allergy hives Verified 08/10/20 00:32 oxaprozin [From Daypro] Allergy Hives Verified 08/10/20 00:32 Home Medications Home Medications Medication Instructions Recorded Confirmed Type ipratropium bromide 2 spray INTRANASAL BID 08/10/20 08/10/20 History simvastatin 20 mg PO DAILY 08/10/20 08/10/20 History Patient History Medical History Hyperlipidemia Nephrolithiasis Prostate cancer Surgical History History of prostatectomy No history of previous surgery Family History Other No pertinent family history Social History Smoking Status: Never smoker Hx Alcohol Use: Yes Alcohol type: wine Alcohol Intake Frequency Comment: socially Hx Substance Use: No Preferred Language: Hong Konger Communication Ability: Effective Coal Cager Required: No Beliefs That Will Affect Care: None marital status: Current Living Situation: Family Other Information That Helps Us Care for You: No Feels Safe at Home: Yes Safety Concerns: Feels Safe At This Time Assistive Devices: None Review of Systems Review of Systems: All systems reviewed & are unremarkable except as noted in HPI & below Physical Exam Constitutional: WD/WN, vitals as above well developed and well nourished; no acute distress Eyes: PERRL, conjunctivae normal, anicteric sclerae ENMT: external ear and nose normal, oropharynx normal Ears: no hearing impairment Neck: trachea midline Respiratory: normal respiratory effort, lungs clear to auscultation no cough Auscultation: no crackles, no rales and no wheezes Cardiovascular: RRR, no murmur, no edema Gastrointestinal (Abdomen): normal bowel sounds, soft, nontender, no hepatosplenomegaly Inspection/Auscultation: + abdomen distended and normal bowel sounds Percussion/Palpation: no guarding and abdomen not rigid Musculoskeletal: Extremities: extremities normal to inspection Gait: normal gait Skin: no rashes, warm and dry Neurologic: moves all extremities and awake Psychiatric: A+Ox3, euthymic affect Results & Data ([facility]) Vital Signs (Past 12 Hours) Vital Signs Temp Pulse Resp BP Pulse Ox 08/11/20 08:30 36.5 C 100 H 18 121/75 97 PG Care Time/CCT Total # of Minutes Spent Total Time Spent with Patient: Total time spent is greater than 50% in coordination of care (as documented) at patient's floor/unit and/or counseling patient: Coding Level of Care Code 43506 Inpt Consult Level 5 Diagnoses SHANA (acute kidney injury) N17.9 Ascites R18.8 Ascites type: other type Hyponatremia E87.1 Status post prostatectomy Z90.79 (1) Ascites Ascites type: other type Qualified Code(s): R18.8 - Other ascites
[2020-08-11] MEDS ORDERED: FAMOTIDINE 10 MG TABLET PO ONE (14:13)
[2020-08-11 14:45] LABS: Appearance Urine Clear (Clear); Bacteria Urine Automated Negative (Negative); Bilirubin Urine Negative (Negative); Blood Urine 1+ (Negative); Cast Urine Automated 0 /lpf (0-5); Color Urine Dark Yellow; Epithelial Cell Urine Auto 20-30 /lpf (0-5); Glucose Urine UA Negative (Negative); Ketones Urine Negative (Negative); Leukocyte Esterase Urine Trace (Negative); Nitrite Urine Positive (Negative); Protein Urine Negative (Negative); RBC Urine Automated 0-4 /hpf (0-4); Specific Gravity Urine 1.012 (1.000-1.030); Urobilinogen Urine Negative (Negative)
[2020-08-11] MEDS: CALCIUM CARBONATE 500 MG CHEWABLE TAB PO PRN (17:19)
--- NOTE | 2020-08-11 17:24 | Billing Data ---
Date of Service August 11, 2020 Coding Level of Care Code 44373 Subseq Hosp Care Lvl 3
[2020-08-11] MEDS: SIMVASTATIN 20 MG TAB PO SCH (19:59)
[2020-08-11] MEDS: MELATONIN 3 MG TAB PO SCH (20:00)
[2020-08-12] MEDS: SODIUM CHLORIDE 0.9% 1000ML 1,000 ML IV SCH ×3 (02:34→16:03)
[2020-08-12] MEDS: ACETAMINOPHEN 325 MG TAB PO PRN (03:22)
[2020-08-12] MEDS: cefTRIAXone SODIUM 2,000 MG in DEXTROSE 5% 50 ML IV SCH (05:54)
[2020-08-12 06:06] LABS: Basophils # (auto) 0.06 K/uL (0-0.2); Basophils % (auto) 0.9 %; Eosinophils # (auto) 1.03 K/uL (0-0.5); Eosinophils % (auto) 15.7 %; Hematocrit (blood only) 34.3 % (42-52); Hemoglobin 11.7 g/dL (14.0-18.0); Immature Granulocytes # (auto) 0.01 K/uL (0.00-0.02); Immature Granulocytes % (auto) 0.2 %; Lymphocytes # (auto) 0.64 K/uL (1.2-3.4); Lymphocytes % (auto) 9.7 %; Mean Corpuscular Hemoglobin 30.4 pg (25-34); Mean Corpuscular Hgb Conc 34.1 g/dL (32-36); Mean Corpuscular Volume 89.1 fL (80-100); Mean Platelet Volume 9.1 fL (7.4-10.4); Monocytes # (auto) 0.58 K/uL (0.11-0.59); Monocytes % (auto) 8.8 %; Neutrophils # (auto) 4.25 K/uL (1.4-6.5); Neutrophils % (auto) 64.7 %; Platelet Count 252 K/uL (130-400); RDW Coefficient of Variation 12.7 % (11.5-14.5); RDW Standard Deviation 40.8 fL (36.4-46.3); Red Blood Count 3.85 M/uL (4.7-6.1); White Blood Count 6.57 K/uL (4.8-10.8)
[2020-08-12 06:43] LABS: BUN Creatinine Ratio 12.1 (10-20); Calcium 8.6 mg/dl (8.5-10.1); Creatinine Clr Calc Pharmacy 62.4 ml/min; Est GFR (African American) 57.3; Est GFR (Non-African American) 49.4
[2020-08-12] MEDS: TOLTERODINE TARTRATE LA 2 MG CAPCR PO SCH (09:32)
[2020-08-12] MEDS: ENOXAPARIN INJ 30 MG/0.3 ML SYR SQ SCH (09:32)
--- NOTE | 2020-08-12 10:48 | Nephrology Progress Note ---
Date of Service August 12, 2020 Assessment & Plan (1) SAHNA (acute kidney injury): Elevated creatinine in the setting hospital admission for abdominal ascites, progressive respiratory distress and recent prostatectomy. No known history of chronic kidney disease. Urinalysis with low grade proteinuria and hematuria. No postrenal obstruction on CT scan but has significant ascites. Elevated creatinine with abdominal ascites after recent prostatectomy and removal of Ray catheter could be associated with increased creatinine absorption from urinary leak if the ascites is truly from urinary Leak. Creatinine improved and close to baseline, electrolyte acceptable. Voiding normally. Blood pressure well controlled. -- Expect creatinine to continue to improve towards baseline. -- maintain adequate hydration, avoid any nephrotoxic medications including NSAID. Will sign off (2) Ascites: (3) Hyponatremia: (4) Status post prostatectomy: Admission and Anticipated Discharge Date Admission Date: August 10, 2020 Subjective Mr. Anguiano was seen and examined in his room this morning. Overall he is doing well denies any specific symptoms. Abdominal distension significantly improved and overall feeling better after Ray catheter was placed yesterday. rapid improvement in renal function with Creatinine down to 1.5. blood pressure well controlled, electrolyte acceptable. Review of Systems Review of Systems: All systems reviewed & are unremarkable except as noted in HPI & below Physical Exam Constitutional: well developed and well nourished; no acute distress Respiratory: normal respiratory effort, lungs clear to auscultation Cardiovascular: RRR, no murmur, no edema Neurologic: moves all extremities and awake; not confused Psychiatric: A+Ox3, euthymic affect Results & Data ([facility]) Vital Signs (Past 12 Hours) Vital Signs Temp Pulse Resp BP Pulse Ox 08/11/20 23:36 37.1 C 83 16 133/75 96 PG Care Time/CCT Total # of Minutes Spent Total Time Spent with Patient: Total time spent is greater than 50% in coordination of care (as documented) at patient's floor/unit and/or counseling patient: Coding Level of Care Code 57489 Subseq Hosp Care Lvl 2 Diagnoses SHANA (acute kidney injury) N17.9 Ascites R18.8 Ascites type: other type Hyponatremia E87.1 Status post prostatectomy Z90.79 (1) Ascites Ascites type: other type Qualified Code(s): R18.8 - Other ascites
--- NOTE | 2020-08-12 10:59 | Fluoroscopy Report ---
[place] cystogram CLINICAL HISTORY: post prostatectomy anastomotic leak COMPARISON STUDY: CT of the abdomen and pelvis August 10, 2020. FLUOROSCOPY TIME: 0 seconds. FLUOROSCOPIC IMAGES: 0 FINDINGS: Gas Station Operator image of the pelvis was obtained. A cystogram was then performed following instillati on 350 cc into the bladder. Post drainage image was then obtained. Gas Station Operator image demonstrates a Ray c atheter. Ray shots are unremarkable. No contrast extravasation is identified on this examination. T here is no evidence for a leak on this examination. Post drainage image is unremarkable. IMPRESSION: No contrast extravasation to indicate leak. ACT 112: Negative or not required by law. Electronically signed by: Jt Pathak M.D. 08/12/2020 10:58 AM
[2020-08-12] MEDS: CALCIUM CARBONATE 500 MG CHEWABLE TAB PO PRN (12:26)
--- NOTE | 2020-08-12 17:19 | Discharge Summary ---
Date of Service August 12, 2020 Admission HPI Per Admitting Provider Andrew Anguiano is a 65 year old man with a Past medical history significant for recently diagnosed prostate cancer with radical prostatectomy performed at [facility] two weeks ago and hyperlipidemia who presents today with shortness of breath. He has noticed marked abdominal swelling that has been increasing since a few days after his procedure. He feels that it has stopped him being able to take a deep breath which is making him feel short of breath. He has also had some non bloody non melanotic diarrhea over the last three days and has had some incontinence since his miramontes was removed following the procedure about a week ago. Just in the last week he has gained ten pounds despite a markedly decreased appetite and decreased liquid intake. Patient also went to his primary care doctor about a week ago for palpable lump on his neck. U/S was obtained which appeared to be a reactive lymph node rather than suspicious for metastatic prostate cancer. Surgical margins for prostate cancer were clear and they took approximately 20 lymph nodes as well per patient, no records as surgery was done at [place]. Other than that he has been well and has not noticed any other symptoms, denies fever, chills, sweats, chest pain, orthopnea, leg swelling, hand swelling, abdominal pain, nausea vomiting, hematuria, dysuria, skin rashes, weakenss, numbness dizziness or syncope, palpitations or any other concerning symptoms. On presentation to ED patient's vitals are WNL, Labwork significant for hypnatremia at 127 and an SHANA with creatinine of 3.62 with no baseline BUN of 26, urinalysis with 2+blood, 1+ protein, and positive nitrites. CT abdomen Pelvis obtained showing RIght upper and middle lobe calcified granulomas, hepatic granuloma and splenic granulomas as well as a moderate/large amount of ascites. 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 Full Code Admission Exam Per Admitting Provider Constitutional: developed and well nourished; no acute distress and not ill appearing Eyes: PERRL, conjunctivPae normal, anicteric sclerae ENMT: external ear and nose normal, oropharynx normal Neck: firm nontender lymph nodes about 1 cm on lower anterior neck Respiratory: normal respiratory effort, lungs clear to auscultation Cardiovascular: Rate/Rhythm: regular rate and regular rhythm Heart Sounds: normal S1 and normal S2 Vessels: normal peripheral pulses and dorsalis pedis pulses present; no JVD Extremities: no calf tenderness, no pedal edema and no edema Gastrointestinal (Abdomen): Inspection/Auscultation: + abdomen distended Percussion/Palpation: + ascites (Shiftin dullness); abdomen nontender, no guarding and no hepatosplenomegaly Skin: no rashes, warm and dry Neurologic: PERRL, EOMI, accommodation nl, no face palsy, no dysarthria Principal Diagnosis Ascites secondary to anastamotic leak Discharge Exam Constitutional WD/WN, vitals as above Respiratory normal respiratory effort, lungs clear to auscultation Cardiovascular RRR, no murmur, no edema Gastrointestinal (Abdomen) normal bowel sounds, soft, nontender, no hepatosplenomegaly Percussion/Palpation: no ascites and no fluid wave Musculoskeletal no cyanosis or clubbing, extremities motor strength 5/5 Neurologic PERRL, EOMI, accommodation nl, no face palsy, no dysarthria Psychiatric A+Ox3, euthymic affect Discharge Data Allergies Allergy/AdvReac Type Severity Reaction Status Date / Time levofloxacin [From Levaquin] Allergy hives Verified 08/10/20 00:32 oxaprozin [From Daypro] Allergy Hives Verified 08/10/20 00:32 Consultations 08/10/20 02:31 ED Decision to Admit Stat 08/11/20 09:04 Consult Nephrology Routine Ordered Studies 08/10/20 01:01 CT abd pelvis wo con Urgent CT chest wo con Urgent 08/10/20 06:17 US duplex portal hepatic veins Urgent 08/12/20 07:00 [place] cystogram Routine Hospital Course (1) Ascites: Andrew Anguiano is a 65yo male with a history of prostate cancer s/p radical prostatectomy two weeks ago and HLD who presented to the ED on 08/10 with abdominal swelling, shortness of breath, and elevated creatinine thought to be secondary to urine leakage from his prostatectomy anastamosis site. Clinically he greatly improved upon miramontes catheterization and has minimal to no ascites, and has no symptoms to report. Ascites: resolved upon miramontes catheterization -urology consult: likely secondary to urine leakage from prostatectomy anastamosis site -keep miramontes catheter in for one week per urology consult -nephrology signed off s/p normalization of creatinine and electrolytes -elevated creatinine was thought to be 2/2 resorption from intraabdominal urine leakage -per urology, will send home with cefdinir 300mg bid for infection prophylaxis SHANA: resolved -creatinine down to 1.46 from 3.5 -BUN down to 18 from 26 -follow up outpatient Prostate cancer s/p radical prostatectomy at [facility] two weeks ago -follow up with urology -follow up with [facility] team GERD: symptomatic yesterday, but improved after treatment with pepcid and tums -currently asymptomatic -c/w tums prn Hyponatremia: resolved -up to 138 from 128 after being given NSS and tolerating PO intake -no treatment indicated -follow up outpatient Urinary tract infection: asymptomatic, UA was positive for nitrites -abdominal infection prophylaxis will also treat a potential UTI Incidental pulmonary nodules found on chest CT -follow up outpatient Hyperlipidemia: stable -continue home dose simvastatin 20mg daily FENGI: regular diet DVT prophylaxis: ambulating well, no chemoprophylaxis indicated Code status: full code Dispo: discharge home (2) Prostate cancer: (3) Status post prostatectomy: (4) Pulmonary nodules: (5) Heartburn symptom: (6) Insomnia: Total Time Total Time Spent Total Time Spent (In Minutes): 20 minutes Discharge Plan Discharge Items Patient Disposition: Home - Self-Care Reason For Visit: ASCITES, SHORTNESS OF BREATH Discharge Diagnosis: Anastamotic leak Activity: As commented below Activity Comment: Follow the instructions provided by surgery after your prostatectomy Non-emergency contact: Primary Care Provider and Surgeon Call non-emergency contact if: you have any medication questions, your symptoms worsen, you have a fever and your temperature is above 101.5 Follow-up/Referrals: Carmelo Alvarez MD [Primary Care Provider] - 08/26/20 3:10 pm Diet: Regular Addtl Attending Provider Instructions: Anastamotic leakage of urine: you were admitted to the hospital with shortness of breath and ascites, which is fluid accumulation in your abdomen. We believe this is related to your recent prostatectomy procedure, possibly due to a leak of urine into the abdomen from that surgical site. Dehydration from low dietary intake is a possible contributing factor. Your symptoms, including your shortness of breath, greatly improved once we placed a miramontes catheter that drained your urine. Your laboratory values, including creatinine and electrolyte levels, normalized in the days following catheterization. Keep your miramontes cathether in and follow up with urology in one week. We will try to make this appointment, but call their office tomorrow to make sure the appointment is scheduled. We sent a prescription for an antibiotic, cefdinir 300mg, for you to take twice daily in order to prevent an abdominal infection. Continue taking this until your urology appointment and ask for their input regarding how long to continue taking it. We found two small nodules in your lung when we were evaluating your original symptoms. These did not impact your care during your hospital stay, but follow up with your PCP to address these. Pending Studies at Discharge: No Stand-Alone Forms: My [facility] Medications and DC Order Prescriptions: New cefdinir 300 mg capsule 300 mg PO BID 10 Days Qty: 20 RF: 0 Continued simvastatin 20 mg tablet 20 mg PO DAILY RF: 0 ipratropium bromide 0.03 % spray,non-aerosol 2 spray INTRANASAL BID RF: 0 Discharge Orders: Discharge Order (Routine); Ordered 08/12/20 Ordered By: Fabricio Galan/Other Patient Handouts: Emptying and Cleaning Your ..., Discharge Instructions Caring for ... Admission Data Admit Date/Time: 08/10/20 03:34 Attending Provider: Garrick Herrera Admit Provider: Sudeep Bourne Primary Care Provider: Carmelo Alvarez Other Providers: Olegario Mayfield ; Shannan Carvalho Other Interventions: Discharge Summary Assessment (RN) Last Done: 08/12/20 16:23 Supervising Physician Co-Signing Physician Notes I also saw the patient with the resident physician and confirmed amato portions of the history and physical examination. Agree with the impression and plan as noted in the discharge summary. Suspicion is for an anastomotic leak, and it appears that the Miramontes catheter in place has diverted the urine from the leak site as the cystogram completed today shows no evidence for leak. Reviewed the results of this with the patient and his . Also discussed the case with urology prior to discharge. Discharge home with Miramontes catheter in place. Antibiotic prophylaxis with cefdinir 30 mg p.o. twice daily Outpatient follow-up to be arranged with urology in 1 to 2 weeks. Did discuss signs and symptoms to monitor for that would necessitate return to the hospital, this would include but not limited to increased abdominal distention, abdominal pain, fever, chills, decreased urine output and Miramontes. Resident Activity Tracking Resident Involvement: Resident Care Provided Care Provided: Adult [facility] Medicine
== END 2020-08-12 17:31 | disposition home or self-care (01) | DRG 698 ==
LOC: ED 00:11 → 3E 03:34 → SUATTDRO 03:34 → 3E 04:39